=== PATIENT | female | born 1935 | race Caucasian/White ===

== ENCOUNTER 2021-04-26 14:26 | Inpatient (IN) | payer MEDICARE ==
[~2021-04-26] VITALS: Ht 152.4 cm; Wt 77.9 kg
[2021-04-26 14:44] LABS: BASOPHILS ABSOLUTE AUTO 0.03 K/mm3 (0.00-0.23); BASOPHILS PERCENT AUTO 0 % (0-2); EOSINOPHILS ABSOLUTE AUTO 0.04 K/mm3 (0.00-0.68); EOSINOPHILS PERCENT AUTO 0 % (0-6); Hematocrit 44.4 % (33.0-51.0); Hemoglobin 14.5 g/dL (11.5-16.0); IMMATURE GRAN PERCENT AUTO 1 % (0-1); LYMPHOCYTES ABSOLUTE AUTO 0.92 K/mm3 (0.84-5.20); LYMPHOCYTES PERCENT AUTO 6 % (21-46); MONOCYTES ABSOLUTE AUTO 0.97 K/mm3 (0.16-1.47); MONOCYTES PERCENT AUTO 6 % (4-13); Mean Corpuscular HGB 28.5 pg (26.0-34.0); Mean Corpuscular HGB Conc 32.7 g/dL (31.5-36.5); Mean Corpuscular Volume 87 fL (80-100); Mean Platelet Volume 9.4 fL (9.1-12.4); NEUTROPHILS ABSOLUTE AUTO 13.43 K/mm3 (1.96-9.15); NEUTROPHILS PERCENT AUTO 87 % (41-73); Platelet Count 328 K/mm3 (150-400); RDW Coefficient Variation 15.6 % (11.7-14.2); RDW Standard Deviation 49.9 fL (35.1-46.3); Red Blood Cell Count 5.08 M/mm3 (3.80-5.20); White Blood Cell Count 15.49 K/mm3 (4.00-11.30)
[2021-04-26] MEDS ORDERED: VITAMIN D5000 UNIT PO (14:57)
[2021-04-26] MEDS ORDERED: Vitamin B-121000 MCG PO (14:57)
[2021-04-26] MEDS ORDERED: CALCIUM CIT 311 EAC7 PO (14:57)
[2021-04-26] MEDS ORDERED: C COMPLEX1000 M1 PO (14:58)
[2021-04-26] MEDS ORDERED: MAGNESIUM OXID500 MG PO (14:58)
[2021-04-26 15:04] LABS: Alanine Aminotransfer (ALT/SGP 36 U/L (12-78); Albumin, Blood 2.7 g/dL (3.4-5.0); Albumin/Globulin Ratio 0.6 (0.8-1.8); Alk Phos 151 U/L (50-136); Anion Gap 10 mmol/L (6-16); Aspartate Aminotrans (AST/SGOT 34 U/L (12-37); Blood Urea Nitrogen 20 mg/dL (8-24); Bun/Creatinine Ratio 23.2 (12.0-20.0); CO2, Blood 20 mmol/L (21-32); Calcium, Blood 9.1 mg/dL (8.5-10.1); Chloride, Blood 99 mmol/L (98-108); Creatinine, Blood 0.86 mg/dL (0.40-1.00); Globulin, Blood 4.5 g/dL (2.2-4.0); Glomerular Filtration Rate >60 (60-); Glucose, Blood 233 mg/dL (70-99); Magnesium, Blood 2.3 mg/dL (1.6-2.4); Potassium, Blood 5.1 mmol/L (3.5-5.5); Sodium, Blood 129 mmol/L (136-145); Total Protein, Blood 7.2 g/dL (6.4-8.2); Troponin I <0.015 ng/mL (0.000-0.040)
[2021-04-26 15:16] LABS: International Normalized Ratio 1.21; Prothrombin Time Results 12.5 Sec (9.7-11.5)
[2021-04-26 16:01] LABS: Influenza A, PCR NEGATIVE (NEGATIVE); Influenza B, PCR NEGATIVE (NEGATIVE); Resp Syncytial Virus, PCR NEGATIVE (NEGATIVE); SARS-Cov-2 (COVID-19) PCR, MMC NEGATIVE (NEGATIVE)
[2021-04-26] MEDS ORDERED: ASPI81CH PO (18:47)
--- NOTE | 2021-04-27 05:34 | NUR ---
SHIFT SUMMARY PAITIENT ALERT AND ORIENTED. HAD NO COMPLAINTS OF PAIN. DYSPNEA UPON EXHERSION. NO ACUTE ISSUES NOTED OVERNIGHT. CALL LIGHT WITHIN REACH. REPORT GIVEN TO ONCOMING RN.
[2021-04-27 06:20] LABS: Anion Gap 8 mmol/L (6-16); Blood Urea Nitrogen 22 mg/dL (8-24); Bun/Creatinine Ratio 25.5 (12.0-20.0); CO2, Blood 24 mmol/L (21-32); Calcium, Blood 8.9 mg/dL (8.5-10.1); Chloride, Blood 99 mmol/L (98-108); Creatinine, Blood 0.86 mg/dL (0.40-1.00); Glomerular Filtration Rate >60 (60-); Glucose, Blood 138 mg/dL (70-99); Potassium, Blood 3.4 mmol/L (3.5-5.5); Sodium, Blood 131 mmol/L (136-145)
--- NOTE | 2021-04-27 11:44 | NUR ---
echocardiogram complete
--- NOTE | 2021-04-27 17:20 | NUR ---
PATIENT IS ALERT AND ORIENTED X4. PATIENT HAS HAD NO ACUTE EVENTS THIS SHIFT. PATIENT HAS HAD NO COMPLAINTS OF PAIN, SOB, NAUSEA, VOMITTING. CARDIOLOGY CONSULT WAS CALLED IN AND DR SAW PATIENT AND EXPLAINED PROCEDURES AND HAD CONSENT FORM SIGNED. CALL LIGHT IN REACH. VITAL SIGNS REVIEWED. WILL CONTINUE TO MONITOR UNTIL SHIFT CHANGE.
--- NOTE | 2021-04-27 21:20 | NUR ---
NOTIFIED PATIENT'S DAUGHTER OF TRANSFER TO PCU 6
--- NOTE | 2021-04-28 01:22 | NUR ---
A/OX4. INSPIRATORY CRACKLES UPPER AND MORE COARSE LOWER LOBES. MAINTAINING ABOVE 92% ON RA. AFIB AVG 95 PER TELE. FAINT PEDAL PULSES BL. 3+ PITTING EDEMA BOTH LOWER EXTREMITIES FROM THE HIPS DOWN, WITH RED/SCALING FROM JUST BELOW THE KNEE TO THE ANKLE. 1+ PITTING EDEMA BL UPPER EXTREMITIES. 2+ RADIAL PULSES BL. REDNESS ON BUTTOCKS. GETS UP WITH 1 ASSIST TO BSC, CALLS APPROPRIATELY. AMIODARONE NOW RUNNING AT 16.7ML/HR THE MAINTENANCE RATE. 1500ML FLUID RESTRICTION IN PLACE. PATIENT SLEPT MOST OF THE NIGHT.
[2021-04-28 04:01] LABS: BASOPHILS ABSOLUTE AUTO 0.04 K/mm3 (0.00-0.23); BASOPHILS PERCENT AUTO 0 % (0-2); EOSINOPHILS ABSOLUTE AUTO 0.12 K/mm3 (0.00-0.68); EOSINOPHILS PERCENT AUTO 1 % (0-6); Hematocrit 37.6 % (33.0-51.0); Hemoglobin 12.3 g/dL (11.5-16.0); IMMATURE GRAN ABSOLUTE AUTO 0.08 K/mm3 (0.00-0.10); IMMATURE GRAN PERCENT AUTO 1 % (0-1); LYMPHOCYTES ABSOLUTE AUTO 1.12 K/mm3 (0.84-5.20); LYMPHOCYTES PERCENT AUTO 8 % (21-46); MONOCYTES ABSOLUTE AUTO 0.95 K/mm3 (0.16-1.47); MONOCYTES PERCENT AUTO 7 % (4-13); Mean Corpuscular HGB 28.3 pg (26.0-34.0); Mean Corpuscular HGB Conc 32.7 g/dL (31.5-36.5); Mean Corpuscular Volume 86 fL (80-100); Mean Platelet Volume 9.6 fL (9.1-12.4); NEUTROPHILS ABSOLUTE AUTO 11.29 K/mm3 (1.96-9.15); NEUTROPHILS PERCENT AUTO 83 % (41-73); Platelet Count 293 K/mm3 (150-400); RDW Coefficient Variation 15.4 % (11.7-14.2); RDW Standard Deviation 47.9 fL (35.1-46.3); Red Blood Cell Count 4.35 M/mm3 (3.80-5.20)
[2021-04-28 04:31] LABS: Albumin, Blood 1.9 g/dL (3.4-5.0); Anion Gap 9 mmol/L (6-16); Blood Urea Nitrogen 23 mg/dL (8-24); Bun/Creatinine Ratio 29.9 (12.0-20.0); CO2, Blood 27 mmol/L (21-32); Calcium, Blood 8.1 mg/dL (8.5-10.1); Chloride, Blood 96 mmol/L (98-108); Creatinine, Blood 0.77 mg/dL (0.40-1.00); Glomerular Filtration Rate >60 (60-); Glucose, Blood 153 mg/dL (70-99); Magnesium, Blood 1.7 mg/dL (1.6-2.4); Phosphorus, Blood 3.1 mg/dL (2.5-4.9); Potassium, Blood 2.6 mmol/L (3.5-5.5); Sodium, Blood 132 mmol/L (136-145)
[2021-04-28 16:26] LABS: Albumin, Blood 2.3 g/dL (3.4-5.0); Anion Gap 8 mmol/L (6-16); Blood Urea Nitrogen 24 mg/dL (8-24); Bun/Creatinine Ratio 25.9 (12.0-20.0); CO2, Blood 31 mmol/L (21-32); Calcium, Blood 8.7 mg/dL (8.5-10.1); Chloride, Blood 96 mmol/L (98-108); Creatinine, Blood 0.93 mg/dL (0.40-1.00); Glomerular Filtration Rate 58 (60-); Glucose, Blood 191 mg/dL (70-99); Phosphorus, Blood 2.7 mg/dL (2.5-4.9); Potassium, Blood 3.2 mmol/L (3.5-5.5); Sodium, Blood 135 mmol/L (136-145)
--- NOTE | 2021-04-28 18:30 | NUR ---
A&O, PLEASANT WITH CARES. TELE: AFIB 80-100S. AMIODARONE GTT WAS D/C 1500,PO MEDS STARTED (METOPROLOL & AMIODARONE). IV LASIX GIVEN. UP TO BSC WITH MIN ASSIST. LIMITED MOBILITY ON LEFT KNEE. K AND MAG REPLACED IV TODAY. IV ABX CONTINUED. CBG TAKEN WITH EACH MEAL, SLIDING SCALE INSULIN GIVEN. 2 IV IN LEFT ARM BOTH FLUSHING WELL. 1500ML FLUID RESTRICTION MAINTAINED. GOOD APPETITE. PT WORKED WITH PT AND OT TODAY.
[2021-04-29 04:35] LABS: Anion Gap 7 mmol/L (6-16); Blood Urea Nitrogen 19 mg/dL (8-24); Bun/Creatinine Ratio 22.4 (12.0-20.0); CO2, Blood 33 mmol/L (21-32); Calcium, Blood 8.3 mg/dL (8.5-10.1); Chloride, Blood 97 mmol/L (98-108); Creatinine, Blood 0.85 mg/dL (0.40-1.00); Glomerular Filtration Rate >60 (60-); Glucose, Blood 120 mg/dL (70-99); Magnesium, Blood 1.7 mg/dL (1.6-2.4); Potassium, Blood 2.5 mmol/L (3.5-5.5); Sodium, Blood 137 mmol/L (136-145)
--- NOTE | 2021-04-29 07:40 | NUR ---
SHIFT SUMMARY PATIENT IS RESTING IN BED COMFORTABLY. BED IS IN LOW POSITION. CALL LIGHT IS IN REACH. VITALS WERE STABLE DURING THE SHFIT. NO ACUTE CHANGES DURING THE SHIFT. THE PATIENT HAS BEEN UP TO THE BEDSIDE COMMODE TO USE URINATE. THE PATIENT HAD A POTASSIM OF 2.5 DR BIRD WAS NOTIFED AND NEW ORDERS WERE PUT IN. THE PATIENT IS ON ROOM AIR AND SATURATING ABOVE 90%. SHE IS CURRENTLY AFIB ON THE MONITOR HEART RATE BETWEEN 70-80. WILL CONTINUE TO MONITOR. REPORT GIVEN TO DAY SHIFT RN.
[2021-04-29 16:17] LABS: Albumin, Blood 2.5 g/dL (3.4-5.0); Anion Gap 8 mmol/L (6-16); Blood Urea Nitrogen 19 mg/dL (8-24); Bun/Creatinine Ratio 18.8 (12.0-20.0); CO2, Blood 29 mmol/L (21-32); Calcium, Blood 8.4 mg/dL (8.5-10.1); Chloride, Blood 95 mmol/L (98-108); Creatinine, Blood 1.01 mg/dL (0.40-1.00); Glomerular Filtration Rate 52 (60-); Glucose, Blood 210 mg/dL (70-99); Phosphorus, Blood 4.4 mg/dL (2.5-4.9); Potassium, Blood 4.9 mmol/L (3.5-5.5); Sodium, Blood 132 mmol/L (136-145)
--- NOTE | 2021-04-29 18:28 | NUR ---
Pt had occupational and physical therapy today and tolerated both well. She stayed awake most of the day although she stated this AM that she was very tired after not getting much sleep last night. Blood sugar levels were elevated today (109 and 191) and she received insulin before her lunch and dinner meals. Heart rate has been jumping into 140-150's with exertion, but has also been randomly high while at rest. Pt showered this AM and is eating most of her meals. She requires assistance to the bedside comode and is good about asking for help. She had a small bowel movement today.
[2021-04-30 05:17] LABS: Albumin, Blood 2.1 g/dL (3.4-5.0); Anion Gap 6 mmol/L (6-16); Blood Urea Nitrogen 16 mg/dL (8-24); Bun/Creatinine Ratio 20.3 (12.0-20.0); CO2, Blood 33 mmol/L (21-32); Calcium, Blood 8.1 mg/dL (8.5-10.1); Chloride, Blood 96 mmol/L (98-108); Creatinine, Blood 0.79 mg/dL (0.40-1.00); Glomerular Filtration Rate >60 (60-); Glucose, Blood 108 mg/dL (70-99); Magnesium, Blood 1.9 mg/dL (1.6-2.4); Phosphorus, Blood 2.7 mg/dL (2.5-4.9); Potassium, Blood 3.1 mmol/L (3.5-5.5); Sodium, Blood 135 mmol/L (136-145)
--- NOTE | 2021-04-30 07:32 | NUR ---
SHIFT SUMMARY PATIENT IS RESTING IN BED COMFORTABLY. BED IS IN LOW POSITION. CALL LIGHT IS IN REACH. VITALS WERE STABLE DURING THE SHFIT. NO ACUTE CHANGES DURING THE SHIFT. THE PATIENT HAS BEEN UP TO THE BEDSIDE COMMODE TO USE URINATE. THE PATIENT IS ON ROOM AIR AND SATURATING ABOVE 90%. SHE IS CURRENTLY AFIB ON THE MONITOR HEART RATE BETWEEN 70-80. NO COMPLAINS OF PAIN. WILL CONTINUE TO MONITOR. REPORT GIVEN TO DAY SHIFT RN.
--- NOTE | 2021-04-30 18:24 | NUR ---
Assumed care of pt at 0700. She ate 100% of her breakfast and assisted in self personal care. Pt had some slight bleeding at the sites of Lovenox injections last night and this morning on L and R abdomen. Areas were cleaned and covered with bandaids. Insulin injection in left arm did not bleed. Pt worked with physical therapy today. Dr. Fowler spoke with pt today and a cardioversion is planned for tomorrow morning. Pt will be NPO after midnight tonight and will have a loading dose of Plavix at 2100. Hold Lovenox for this evening. Pt understands the procedure and does not express any anxiety or anticipation regarding it. She states that she understands the procedure and wants to have it done.
[2021-05-01 07:10] LABS: Albumin, Blood 2.1 g/dL (3.4-5.0); Anion Gap 7 mmol/L (6-16); Blood Urea Nitrogen 17 mg/dL (8-24); Bun/Creatinine Ratio 21.8 (12.0-20.0); CO2, Blood 33 mmol/L (21-32); Calcium, Blood 8.4 mg/dL (8.5-10.1); Chloride, Blood 98 mmol/L (98-108); Creatinine, Blood 0.78 mg/dL (0.40-1.00); Glomerular Filtration Rate >60 (60-); Glucose, Blood 127 mg/dL (70-99); Potassium, Blood 3.4 mmol/L (3.5-5.5); Sodium, Blood 138 mmol/L (136-145)
--- NOTE | 2021-05-01 12:15 | NUR ---
PT RETURNED FROM WILL CALL CLERK WITH RT RADIAL ACCESS, NO INTERVENTIONS, NO CARDIO VERSION. NO BLEEDING NOTED FROM RT RADIAL SITE, NO SWELLING, GOOD SENSATION TO RT FINGERS, PT ABLE TO MOVE FINGERS OF RT HAND. PT ALERT, VSS. DENIES CP OR SOB, EATING LUNCH.
--- NOTE | 2021-05-01 16:27 | NUR ---
Discussed limiting sodium intake and common sources of sodium. Reviewed salt alternatives and tips for choosing lower sodium foods when eating out. Discussed counting foods that are liquid at room temperature towards fluid restriction. Encouraged pt to monitor wt to watch for fluid accumulation. Good compliance expected.
--- NOTE | 2021-05-01 18:44 | NUR ---
PT TO [facility] DEEPTI AND ANGIO. RT RADIAL SITE IS FULLY RECOVERED, NO ACIVE BLEEDING, GOOD CAP REFILL, SKIN PWD AND INTACT ASIDE FROM PUNCTURE SITE, TEGADERM PLACED, ARM BOARD IN PLACE. PT THOROUGHLY EDUCATED ABOUT NOT USING RT ARM WHICH SHE EXPRESSED UNDERSTANDING OF. OTHERWSISE VSS. A/O X3. DENIES CP OR SOB. PT USED BEDPAN WHEN RETURNED FROM [facility]. [facility], PT IS AWARE. FLUID RESTRICTION REMAINS IN EFFECT
[2021-05-02 04:48] LABS: BASOPHILS ABSOLUTE AUTO 0.04 K/mm3 (0.00-0.23); BASOPHILS PERCENT AUTO 0 % (0-2); EOSINOPHILS ABSOLUTE AUTO 0.12 K/mm3 (0.00-0.68); EOSINOPHILS PERCENT AUTO 1 % (0-6); Hematocrit 36.8 % (33.0-51.0); IMMATURE GRAN ABSOLUTE AUTO 0.07 K/mm3 (0.00-0.10); IMMATURE GRAN PERCENT AUTO 1 % (0-1); LYMPHOCYTES ABSOLUTE AUTO 1.25 K/mm3 (0.84-5.20); LYMPHOCYTES PERCENT AUTO 12 % (21-46); MONOCYTES ABSOLUTE AUTO 0.74 K/mm3 (0.16-1.47); MONOCYTES PERCENT AUTO 7 % (4-13); Mean Corpuscular HGB 28.6 pg (26.0-34.0); Mean Corpuscular HGB Conc 32.6 g/dL (31.5-36.5); Mean Corpuscular Volume 88 fL (80-100); Mean Platelet Volume 9.7 fL (9.1-12.4); NEUTROPHILS ABSOLUTE AUTO 8.18 K/mm3 (1.96-9.15); NEUTROPHILS PERCENT AUTO 79 % (41-73); Platelet Count 319 K/mm3 (150-400); RDW Coefficient Variation 15.6 % (11.7-14.2); RDW Standard Deviation 49.5 fL (35.1-46.3)
[2021-05-02 05:08] LABS: Anion Gap 5 mmol/L (6-16); Blood Urea Nitrogen 16 mg/dL (8-24); Bun/Creatinine Ratio 20.4 (12.0-20.0); CO2, Blood 31 mmol/L (21-32); Calcium, Blood 8.4 mg/dL (8.5-10.1); Chloride, Blood 99 mmol/L (98-108); Creatinine, Blood 0.78 mg/dL (0.40-1.00); Glomerular Filtration Rate >60 (60-); Glucose, Blood 124 mg/dL (70-99); Magnesium, Blood 1.8 mg/dL (1.6-2.4); Phosphorus, Blood 2.9 mg/dL (2.5-4.9); Potassium, Blood 3.9 mmol/L (3.5-5.5); Sodium, Blood 135 mmol/L (136-145)
--- NOTE | 2021-05-02 18:25 | NUR ---
PT AWAITING RESULTS OF STRESS TEST FOR POSSIBLE D/C TODAY, RESULTS HAVE NOT BEEN REPORTED OUT OF THIS TIME. VSS, BP MEDS WERE HELD THIS AM FOR SOFT PRESSURES AND NPO STATUS FOR STRESS TEST. PT A/O X3, SBA TO BATHROOM. DENIES CP OR SOB.
--- NOTE | 2021-05-02 19:19 | NUR ---
Update: Per Cardiology pt is ok to discharge tonight if patient has a ride and feels ok about going home. Spoke with Patient. She states that she feels nervious about discharge and about her heart rate racing when she gets up. Informerd her this is fine and that it is ok for her to stay another night. Night RN in room to assess patient. Stable at this time.
[2021-05-03 04:14] LABS: Albumin, Blood 1.9 g/dL (3.4-5.0); Anion Gap 6 mmol/L (6-16); Blood Urea Nitrogen 17 mg/dL (8-24); Bun/Creatinine Ratio 21.5 (12.0-20.0); CO2, Blood 32 mmol/L (21-32); Calcium, Blood 8.4 mg/dL (8.5-10.1); Chloride, Blood 97 mmol/L (98-108); Creatinine, Blood 0.79 mg/dL (0.40-1.00); Glomerular Filtration Rate >60 (60-); Glucose, Blood 112 mg/dL (70-99); Magnesium, Blood 1.8 mg/dL (1.6-2.4); Phosphorus, Blood 2.6 mg/dL (2.5-4.9); Potassium, Blood 3.6 mmol/L (3.5-5.5); Sodium, Blood 135 mmol/L (136-145)
[2021-05-03 04:23] LABS: BASOPHILS ABSOLUTE AUTO 0.05 K/mm3 (0.00-0.23); BASOPHILS PERCENT AUTO 1 % (0-2); EOSINOPHILS ABSOLUTE AUTO 0.17 K/mm3 (0.00-0.68); EOSINOPHILS PERCENT AUTO 2 % (0-6); Hematocrit 36.6 % (33.0-51.0); Hemoglobin 11.7 g/dL (11.5-16.0); IMMATURE GRAN ABSOLUTE AUTO 0.06 K/mm3 (0.00-0.10); IMMATURE GRAN PERCENT AUTO 1 % (0-1); LYMPHOCYTES ABSOLUTE AUTO 1.25 K/mm3 (0.84-5.20); LYMPHOCYTES PERCENT AUTO 13 % (21-46); MONOCYTES ABSOLUTE AUTO 0.76 K/mm3 (0.16-1.47); MONOCYTES PERCENT AUTO 8 % (4-13); Mean Corpuscular HGB 27.9 pg (26.0-34.0); Mean Corpuscular Volume 87 fL (80-100); Mean Platelet Volume 9.5 fL (9.1-12.4); NEUTROPHILS PERCENT AUTO 77 % (41-73); Platelet Count 306 K/mm3 (150-400); RDW Coefficient Variation 15.5 % (11.7-14.2); RDW Standard Deviation 49.1 fL (35.1-46.3); Red Blood Cell Count 4.19 M/mm3 (3.80-5.20); White Blood Cell Count 9.79 K/mm3 (4.00-11.30)
--- NOTE | 2021-05-03 04:56 | NUR ---
SHIFT SUMMARY PT IS ALERT AND ORIENTED X 4. SHE IS PLEASANT AND COOPERATIVE WITH CARE. SPO2 IN 90'S VIA ROOM AIR. PATIENT STILL IN AFIB @90 PER TELE REPORT. PT DENIED SHORTNESS OF BREATH WELL CHEST PAIN/PRESSURE. RIGHT RADIAL ACCESS SITE IS COVERED WITH TRANSPARENT DRESSING, NO BLEEDING, REDDNESS, OR SWELLING NOTED. ARM BOARD IS IN PLACE ON RIGHT FOREARM. AT BEGINNING OF SHIFT PT DAUGHTER WAS AT BEDSIDE. NO OTHER ACUTE CHANGES NOTED. WILL CONTINUE TO MONITOR. CALL LIGHT IN REACH, NIGHTLIGHT IN ROOM ON.
[2021-05-03] MEDS ORDERED: Amiodarone HCl200 MG PO (12:03)
[2021-05-03] MEDS ORDERED: ELIQUIS5 M2 PO (12:03)
[2021-05-03] MEDS ORDERED: FURO20 PO ×2 (12:06→12:09)
[2021-05-03] MEDS ORDERED: Lisinopril2.5 MG PO (12:10)
[2021-05-03] MEDS ORDERED: TOPROL XL25 MG PO (12:12)
[2021-05-03] MEDS ORDERED: ANTIFUNGAL POWD71 GM TOP (12:14)
[2021-05-03] MEDS ORDERED: POTCHL20ER PO ×2 (12:15→12:16)
--- NOTE | 2021-05-03 14:14 | NUR ---
RECEIVED TELEMETRY CALL PATIENT WAS TACHY IN 130S. PATIENT HAD AMBULATED FROM CHAIR TO TOILET WITH AIDE'S ASSISTANCE. SHE IS WORKING ON HER DEEP BREATHING AND MOVING SLOWLY. COLOR AND BREATHING WNL, PATIENT DID NOT REPORT SOB OR PAIN.
--- NOTE | 2021-05-03 17:43 | NUR ---
DISCHARGE SUMMARY: THIS RN PROVIDED PATIENT WITH DISCHARGE EDUCATION RE: NEW MEDICATIONS, PATIENT REFERRAL TO DR. LUIS VILLANUEVA, FOLLOW-UP WITH DEFECT CUTTER, ANGINA, HEART [facility] DIET, ANGIOGRAM, AND RADIAL SITE CARE. MEDICATIONS WERE CALLED IN TO [facility]. PATIENT DID NOT HAVE ANY QUESTIONS AND VERBALLY STATED EVERYTHING HAD BEEN COVERED TO HER SATISFACTION. SHE THANKED EVERYONE FOR THEIR CARE. VS WERE STABLE UPON D/C AND PATIENT WAS IN GOOD SPIRITS. DAVID (DAUGHTER) PICKED UP PATIENT TO TRANSFER HOME AT 1735.
== END 2021-05-03 17:39 | disposition home or self-care (01) | DRG 286 ==
LOC: ER 14:26 → PCU 17:06 → MEDS 17:06 → PCU 04-27 20:45
PROVIDERS: Internal Medicine; Student in an Organized Health Care Education/Training Program; ADMIT Internal Medicine
PROC: 3E02340 Introduction of Influenza Vaccine into Muscle, Percutaneous Approach (ICD-10-PCS; 2021-04-26)
PROC: B2111ZZ Fluoroscopy of Multiple Coronary Arteries using Low Osmolar Contrast (ICD-10-PCS; principal; 2021-05-01)
PROC: B41D1ZZ Fluoroscopy of Aorta and Bilateral Lower Extremity Arteries using Low Osmolar Contrast (ICD-10-PCS; 2021-05-01)
DX: I48.91 Unspecified atrial fibrillation (principal); I50.23 Acute on chronic systolic (congestive) heart failure; E87.1 Hypo-osmolality and hyponatremia; L03.115 Cellulitis of right lower limb; R65.10 Systemic inflammatory response syndrome (SIRS) of non-infectious origin without acute organ dysfunction; Z66 Do not resuscitate; E87.6 Hypokalemia; E83.42 Hypomagnesemia; Z20.822 Contact with and (suspected) exposure to COVID-19; I51.3 Intracardiac thrombosis, not elsewhere classified; E83.39 Other disorders of phosphorus metabolism; D72.829 Elevated white blood cell count, unspecified; Z23 Encounter for immunization; I25.10 Atherosclerotic heart disease of native coronary artery without angina pectoris; E11.65 Type 2 diabetes mellitus with hyperglycemia; Z86.718 Personal history of other venous thrombosis and embolism; Z87.891 Personal history of nicotine dependence; Z98.890 Other specified postprocedural states
CPT/HCPCS: 0241U; 36415; 71045; 75630; 78452; 80048; 80053; 80069; 82947; 83036; 83735; 83880; 84484; 85025; 85347; 85610; 90686; 93005; 93010; 93017; 93306; 93312; 93325; 93454; 96374; 96375; 97110; 97116; 97161; 97165; 97530; 97535; 99152; 99153; 99285-25; A9270; A9500; C1769; C1894; G0008; G0278; J0282; J0690; J1644; J1650; J1940; J2250; J2785; J3010; J3475; J3480; J7030; J7050; J7060; Q9967

== ENCOUNTER 2021-05-12 19:12 | Inpatient (IN) | payer MEDICARE ==
[~2021-05-12] VITALS: Ht 152.4 cm; Wt 73.6 kg
[~2021-05-12 19:12] MED LIST changes: -Amiodarone HCl200 MG PO; -ELIQUIS5 M2 PO; -Lisinopril2.5 MG PO; -PACERONE100 M1; -TOPROL XL25 MG PO
[2021-05-12 19:54] LABS: BASOPHILS ABSOLUTE AUTO 0.03 K/mm3 (0.00-0.23); BASOPHILS PERCENT AUTO 0 % (0-2); EOSINOPHILS PERCENT AUTO 0 % (0-6); Hematocrit 38.7 % (33.0-51.0); Hemoglobin 12.5 g/dL (11.5-16.0); IMMATURE GRAN PERCENT AUTO 1 % (0-1); LYMPHOCYTES ABSOLUTE AUTO 0.76 K/mm3 (0.84-5.20); LYMPHOCYTES PERCENT AUTO 6 % (21-46); MONOCYTES ABSOLUTE AUTO 0.67 K/mm3 (0.16-1.47); MONOCYTES PERCENT AUTO 6 % (4-13); Mean Corpuscular HGB 27.6 pg (26.0-34.0); Mean Corpuscular HGB Conc 32.3 g/dL (31.5-36.5); Mean Corpuscular Volume 85 fL (80-100); Mean Platelet Volume 9.6 fL (9.1-12.4); NEUTROPHILS ABSOLUTE AUTO 10.42 K/mm3 (1.96-9.15); NEUTROPHILS PERCENT AUTO 87 % (41-73); Platelet Count 404 K/mm3 (150-400); RDW Coefficient Variation 15.5 % (11.7-14.2); RDW Standard Deviation 48.1 fL (35.1-46.3); Red Blood Cell Count 4.53 M/mm3 (3.80-5.20); White Blood Cell Count 11.98 K/mm3 (4.00-11.30)
[2021-05-12] MEDS ORDERED: PACERONE100 M1 (20:30)
[2021-05-12 20:58] LABS: Alanine Aminotransfer (ALT/SGP 18 U/L (12-78); Albumin, Blood 2.4 g/dL (3.4-5.0); Albumin/Globulin Ratio 0.5 (0.8-1.8); Alk Phos 127 U/L (50-136); Anion Gap 10 mmol/L (6-16); Aspartate Aminotrans (AST/SGOT 34 U/L (12-37); Bilirubin, Total 0.9 mg/dL (0.1-1.0); Blood Urea Nitrogen 18 mg/dL (8-24); Bun/Creatinine Ratio 22.1 (12.0-20.0); CO2, Blood 27 mmol/L (21-32); Calcium, Blood 8.8 mg/dL (8.5-10.1); Chloride, Blood 95 mmol/L (98-108); Creatinine, Blood 0.81 mg/dL (0.40-1.00); Globulin, Blood 4.6 g/dL (2.2-4.0); Glomerular Filtration Rate >60 (60-); Glucose, Blood 144 mg/dL (70-99); Potassium, Blood 3.2 mmol/L (3.5-5.5); Sodium, Blood 132 mmol/L (136-145)
[2021-05-12] MEDS ORDERED: ELIQUIS5 M2 PO (22:23)
[2021-05-12] MEDS ORDERED: Lisinopril2.5 MG PO (22:24)
[2021-05-12] MEDS ORDERED: FURO20 PO (22:24)
[2021-05-12] MEDS ORDERED: TOPROL XL25 MG PO (22:25)
[2021-05-12] MEDS ORDERED: Amiodarone HCl200 MG PO (22:25)
[2021-05-12] MEDS ORDERED: POTCHL20ER PO (22:26)
[2021-05-12 22:59] LABS: Influenza A, PCR NEGATIVE (NEGATIVE); Influenza B, PCR NEGATIVE (NEGATIVE); Resp Syncytial Virus, PCR NEGATIVE (NEGATIVE); SARS-Cov-2 (COVID-19) PCR, MMC NEGATIVE (NEGATIVE)
[2021-05-13 05:36] LABS: BASOPHILS ABSOLUTE AUTO 0.03 K/mm3 (0.00-0.23); BASOPHILS PERCENT AUTO 0 % (0-2); EOSINOPHILS ABSOLUTE AUTO 0.13 K/mm3 (0.00-0.68); EOSINOPHILS PERCENT AUTO 2 % (0-6); Hematocrit 34.6 % (33.0-51.0); Hemoglobin 11.1 g/dL (11.5-16.0); IMMATURE GRAN ABSOLUTE AUTO 0.09 K/mm3 (0.00-0.10); IMMATURE GRAN PERCENT AUTO 1 % (0-1); LYMPHOCYTES PERCENT AUTO 13 % (21-46); MONOCYTES ABSOLUTE AUTO 0.76 K/mm3 (0.16-1.47); MONOCYTES PERCENT AUTO 9 % (4-13); Mean Corpuscular HGB 27.8 pg (26.0-34.0); Mean Corpuscular HGB Conc 32.1 g/dL (31.5-36.5); Mean Corpuscular Volume 87 fL (80-100); Mean Platelet Volume 9.6 fL (9.1-12.4); NEUTROPHILS ABSOLUTE AUTO 6.75 K/mm3 (1.96-9.15); NEUTROPHILS PERCENT AUTO 75 % (41-73); Platelet Count 372 K/mm3 (150-400); RDW Coefficient Variation 15.6 % (11.7-14.2); RDW Standard Deviation 48.9 fL (35.1-46.3); Red Blood Cell Count 3.99 M/mm3 (3.80-5.20); White Blood Cell Count 8.96 K/mm3 (4.00-11.30)
[2021-05-13 05:51] LABS: Alanine Aminotransfer (ALT/SGP 13 U/L (12-78); Albumin, Blood 1.8 g/dL (3.4-5.0); Albumin/Globulin Ratio 0.5 (0.8-1.8); Alk Phos 98 U/L (50-136); Anion Gap 9 mmol/L (6-16); Aspartate Aminotrans (AST/SGOT 24 U/L (12-37); Bilirubin, Total 0.6 mg/dL (0.1-1.0); Blood Urea Nitrogen 16 mg/dL (8-24); Bun/Creatinine Ratio 22.4 (12.0-20.0); CO2, Blood 29 mmol/L (21-32); Calcium, Blood 8.2 mg/dL (8.5-10.1); Chloride, Blood 98 mmol/L (98-108); Creatinine, Blood 0.72 mg/dL (0.40-1.00); Globulin, Blood 3.9 g/dL (2.2-4.0); Glomerular Filtration Rate >60 (60-); Glucose, Blood 101 mg/dL (70-99); Potassium, Blood 3.4 mmol/L (3.5-5.5); Sodium, Blood 136 mmol/L (136-145); Total Protein, Blood 5.7 g/dL (6.4-8.2)
--- NOTE | 2021-05-13 10:04 | NUR ---
ARRIVAL TO UNIT PT ARRIVED TO UNIT AT 0850, TRANSFERED TO [facility] WITH SLIDE SHEET. AA0X4. PT DENIES NAUSEA, CP, OR SHORTNESS OF BREATH. SHE IS ON ROOM AIR. LINENS CHANGED ON ARRIVAL OF INC URINE. PT AWARE OF URGE TO VOID AND WILL CALL APPROPRIATLY. CALL LIGHT IN REACH. PICTURES IN CHART OF WOUNDS. LEFT SURGICAL SITE HAS TWO SMALL WHITE RAISED BUMPS ALONG INCISION LINE. LEFT LATERAL SIDE OF CALF IS RED AND INFLAMMED, PAINFUL TO TOUCH. DEEP PURPLE, UNBLANCHABLE PRESSURE ULCER TO COCCYX. MEPILEX APPLIED AND PATIENT WILL BE Q2 TURNS, PT HELPS WITH REPOSITIONING. PT AWARE OF NPO STATUS AND PLAN IS FOR SURGERY TODAY TO CLEAN OUT INFECTED AREA.
--- NOTE | 2021-05-13 14:24 | NUR ---
surgery coming to get patient for procedure. pt voided prior to leaving, saline locked. pt reports looking forward to surgery.
--- NOTE | 2021-05-13 14:51 | NUR ---
History, Chart, Medications and Allergies reviewed before start of procedure. Patient confirms NPO status and agrees with scheduled surgery. Pre-Op teaching done. Pt verbalizes understanding. Lungs clear T/O to Auscultation.
--- NOTE | 2021-05-13 15:41 | NUR ---
05/13/21 1541 Emma Witt NO PRE OP ANTIBIOTICS ORDERED PER PATIENT IS ON SCHEDULED VANCO.
--- NOTE | 2021-05-13 16:29 | NUR ---
WHILE RECIEVING REPORT FROM PACU WAS TOLD OF PATIENTS AFIB WITH RVR AND BP IN THE 80'S, SPOKE WITH HOSPITALIST WHO ASKED FOR TRANSFER TO PCU AND 500ML BOLUS. NOTIFIED NURSING COTTON BALL BAGGER AND PACU, PLAN IS TO TRANSFER TO PCU.
--- NOTE | 2021-05-13 16:35 | NUR ---
1624 REPORT CALLED TO SURGICAL FLOOR, ALE LAWRENCE RN. WHEN REPORT WAS GIVEN AND UPDATED WITH NEW CHANGE OF HR RYJADEM, A-FIB W/RVR, HE WANTED TO CALL HOSPITALIST TO SEE IF WANTED TO CHANGE STATUS. C/O LEFT THIGH PAIN 09/04, FENTANYL 25MCG IVP GIVEN PER ORDERS WITH GOOD RESULTS. 1630 RECEIVED CALLED BACK FROM ALE LAWRENCE RN AND PER DR GARAY TO CHANGE STATUS TO PCU AND GIVEN 500CC IVF BOLUS; STARTED BOLUS. 1635 REPORTED OFF TO CLARISA PAUL RN IN PACU TO TAKE OVER CARE. PATIENT RESTING COMFORTABLE AT THIS TIME.
--- NOTE | 2021-05-13 16:47 | NUR ---
PT REPORT FROM ANGELIKA RENEE AND HARRY VANEGAS RN. WAITING FOR BED IN PCU FOR CHANGE IN RHYTHYM. PT RECEIVING BOLUS OF 500CC LR. PT AWAKE ALERT AND ORIENTED.
--- NOTE | 2021-05-13 17:42 | NUR ---
SPOKE TO NURSING NETWORK ENGINEER ADMINISTRATOR, WAITING FOR PCU BED TO BE CLEANED.
--- NOTE | 2021-05-13 18:36 | NUR ---
report given to pcu nurse. belongings sent to pcu with patient. notified patients daughter per patient request.
--- NOTE | 2021-05-13 18:52 | NUR ---
PT TRANSFERRED FROM SURGICAL FLOOR REPORT RECEIVED FROM ALE KELLEY, PT WENT TO AFIB AFTER THE PROCEDURE HRR AFIB AT 120'S AT THIS TIME, SOFT BP'S 90-100'S SYSTOLIC, SATS ABOVE 95% ON RA, AFEBRILE. PT WOUND VAC ON LEFT THIGH RUNNING AND INTACT, PT TO UNDERGO PROCEDURE AGAIN TOMORROW TO TAKE HARDWARES OUT. PT IN BED RESTING AT THIS TIME, WILL MONITOR
[2021-05-13 22:41] LABS: Vancomycin, Trough 15.8 ug/mL (5.0-10.0)
[2021-05-14 03:55] LABS: BASOPHILS ABSOLUTE AUTO 0.03 K/mm3 (0.00-0.23); BASOPHILS PERCENT AUTO 0 % (0-2); EOSINOPHILS PERCENT AUTO 0 % (0-6); Hematocrit 32.3 % (33.0-51.0); Hemoglobin 10.3 g/dL (11.5-16.0); IMMATURE GRAN ABSOLUTE AUTO 0.15 K/mm3 (0.00-0.10); IMMATURE GRAN PERCENT AUTO 1 % (0-1); LYMPHOCYTES ABSOLUTE AUTO 0.44 K/mm3 (0.84-5.20); LYMPHOCYTES PERCENT AUTO 4 % (21-46); MONOCYTES ABSOLUTE AUTO 0.27 K/mm3 (0.16-1.47); MONOCYTES PERCENT AUTO 2 % (4-13); Mean Corpuscular HGB 27.9 pg (26.0-34.0); Mean Corpuscular HGB Conc 31.9 g/dL (31.5-36.5); Mean Corpuscular Volume 88 fL (80-100); Mean Platelet Volume 9.6 fL (9.1-12.4); NEUTROPHILS ABSOLUTE AUTO 10.27 K/mm3 (1.96-9.15); NEUTROPHILS PERCENT AUTO 92 % (41-73); Platelet Count 390 K/mm3 (150-400); RDW Coefficient Variation 15.8 % (11.7-14.2); RDW Standard Deviation 50.7 fL (35.1-46.3); Red Blood Cell Count 3.69 M/mm3 (3.80-5.20); White Blood Cell Count 11.16 K/mm3 (4.00-11.30)
[2021-05-14 04:23] LABS: Alanine Aminotransfer (ALT/SGP 21 U/L (12-78); Albumin, Blood 1.7 g/dL (3.4-5.0); Albumin/Globulin Ratio 0.5 (0.8-1.8); Alk Phos 92 U/L (50-136); Anion Gap 7 mmol/L (6-16); Aspartate Aminotrans (AST/SGOT 40 U/L (12-37); Bilirubin, Total 0.5 mg/dL (0.1-1.0); Blood Urea Nitrogen 17 mg/dL (8-24); Bun/Creatinine Ratio 23.8 (12.0-20.0); CO2, Blood 26 mmol/L (21-32); Calcium, Blood 8.3 mg/dL (8.5-10.1); Chloride, Blood 101 mmol/L (98-108); Creatinine, Blood 0.72 mg/dL (0.40-1.00); Globulin, Blood 3.7 g/dL (2.2-4.0); Glomerular Filtration Rate >60 (60-); Glucose, Blood 228 mg/dL (70-99); Potassium, Blood 4.1 mmol/L (3.5-5.5); Sodium, Blood 134 mmol/L (136-145); Total Protein, Blood 5.4 g/dL (6.4-8.2)
--- NOTE | 2021-05-14 16:40 | NUR ---
PT SUMMARY: PT TO MOVE TO ROOM 208. NO OTHER ISSUES ENCOUNTERED FOR THE SMHIFT, PT REMAINED AFIB RATE CONTROLLED 70-100'S, BP SYSTOLIC 100-110'S, SATS ABOVE 95% ON RA, AFEBRILE. WOUND VAC ON LEFT THIGH REMAINED INTACT DRAINING SANGUINOUS CANISTER CHANGE DHAD 200MLS OUTPUT. PT DENIES ANY PAIN FOR THE SHIFT, HAS TENDERNESS ON THE SITE WHEN MOVED. USES BEDPAN FOR TOILETING ABLE TO HELP SELF MOVING AND REPOSITONING IN BED. NO OTHER ISSUES REPORTED FOR THE SHIFT, WILL REPORT TO SURGICAL FLOOR NURSE
--- NOTE | 2021-05-14 18:30 | NUR ---
LATE ENTRY ARRIVED FROM PCU VIA BED, AWAKE, A&OX4 BUT FORGETFUL, ORIENTED TO ROOM AND CALL SYSTEM, DENIES ANY PAIN OR ANY DISCOMFORT, WOUND VAC INTACT W/ SS DRAINAGE NOTED IN TUBING, CBG NOTED TO BE 214 BEFORE DINNER, NO SLIDING SCALE ORDERED, DR. FARRIS NOTIFIED, LOW HUMALOG SS ORDERED, REPORT TO NOC RN.
--- NOTE | 2021-05-15 06:14 | NUR ---
AAOX4, NO ACUTE DISTRESS AT THIS TIME. PATIENT HAD 7/10 PAIN IN HER LEFT LEG AND WAS MEDCATED PER EMAR. MARIAHETN SLEPT AFTER PAIN MEDICATION PT IS NPO AND READY FOR PROCEDURE THIS AM. CALL LIGHT WITHIN REACH. BED AT LOWEST POSTION
--- NOTE | 2021-05-15 13:39 | NUR ---
to day surgery via cart
--- NOTE | 2021-05-15 13:59 | NUR ---
PATIENT WAS BROUGHT TO DAY SURGERY FOR HER POCEDURE.
--- NOTE | 2021-05-15 15:26 | NUR ---
05/15/21 1526 Tha Cade NO SPECIMENS PER
--- NOTE | 2021-05-15 16:53 | NUR ---
1625 RETURNED TO ROOM, PT WITH AUDIBLE WHEEZES AND BIBASILAR CRACKLES. OXYGEN AT 2 LITERS AND BIOX 97%. PT REPORTS FEELS SLIGHTLY SOB. WOUND VAC IN PLACE TO LEFT LEG MAINTAINING SUCTION, DRAINING SS DRAINAGE. DRESSING REINFORCED. SPOKE WITH DR FARRIS REGARDING PTS RESPIRATORY STATUS, AND NEW ORDERS RECEIVED
--- NOTE | 2021-05-15 17:52 | NUR ---
[address] FARRIS REGARDING PATIENTS VITAL SIGNS, NEW ORDERS RECEIVED
--- NOTE | 2021-05-15 18:15 | NUR ---
PT REPORTS PAIN TO LEFT LEG IS CURRWNTLY 6/10 WHICH SHE STATES IS ACCEPTABLE TO HER SINCE SHE KNOWS IT WILL BE PAINFUL AFTER SURGERY. WOUND VAC MAINTAINING PRESSURE AND DRAINING SANGUINOUS DRAINAGE. IV LASIX GIVEN WHEN SBP GREATER THAN 110. PT WITH BIOX 100 PERCENT ON 2 LITERS. NO AUDIBLE WHEEZES HEARD AND PT DENIES SOB WITH HOB ELEVATED AT 30 DEGREES. PT REPORTS SLIGHT SOB WHEN LYING FLAT
[2021-05-16 05:30] LABS: BASOPHILS ABSOLUTE AUTO 0.08 K/mm3 (0.00-0.23); BASOPHILS PERCENT AUTO 1 % (0-2); EOSINOPHILS ABSOLUTE AUTO 0.18 K/mm3 (0.00-0.68); EOSINOPHILS PERCENT AUTO 1 % (0-6); Hematocrit 28.3 % (33.0-51.0); IMMATURE GRAN ABSOLUTE AUTO 0.41 K/mm3 (0.00-0.10); IMMATURE GRAN PERCENT AUTO 3 % (0-1); LYMPHOCYTES ABSOLUTE AUTO 1.05 K/mm3 (0.84-5.20); LYMPHOCYTES PERCENT AUTO 7 % (21-46); MONOCYTES ABSOLUTE AUTO 1.18 K/mm3 (0.16-1.47); MONOCYTES PERCENT AUTO 7 % (4-13); Mean Corpuscular HGB 28.1 pg (26.0-34.0); Mean Corpuscular HGB Conc 31.8 g/dL (31.5-36.5); Mean Corpuscular Volume 88 fL (80-100); Mean Platelet Volume 9.8 fL (9.1-12.4); NEUTROPHILS PERCENT AUTO 82 % (41-73); Platelet Count 367 K/mm3 (150-400); RDW Coefficient Variation 15.9 % (11.7-14.2)
[2021-05-16 06:05] LABS: Anion Gap 7 mmol/L (6-16); Blood Urea Nitrogen 19 mg/dL (8-24); CO2, Blood 29 mmol/L (21-32); Calcium, Blood 8.5 mg/dL (8.5-10.1); Chloride, Blood 104 mmol/L (98-108); Creatinine, Blood 0.73 mg/dL (0.40-1.00); Glomerular Filtration Rate >60 (60-); Glucose, Blood 137 mg/dL (70-99); Potassium, Blood 3.8 mmol/L (3.5-5.5); Sodium, Blood 140 mmol/L (136-145)
--- NOTE | 2021-05-16 16:15 | NUR ---
JEAN CARLOS WRAP AND KNEE IMMOBOLIZER PLACED TO LT LEG PER ORDERS OF DR RAPHAEL, DRAIN IS INPLACE WITH GOOD OUTPUT AND CONTINUES TO HAVE GOOD SUCTION AT THE TIME OF THIS NOTE. PT REPORTS MINIMAL PAIN TO LT LEG HAS NOT REQUIRED PAIN MEDICATIONS TO CONTROL PAIN. PT A/O X3. PT WITH ONE UNMEASURED VOID TODAY. LINEN CHANGE PERFORMED. VSS. NADN
--- NOTE | 2021-05-17 18:14 | NUR ---
SHIFT SUMMARY PATIENT ALERT AND SOMETIMES FORGETFUL THROUGHOUT SHIFT. 2 PERSON MOD ASSIST TO PIVOT TRANSFER WITH FWW AND GAIT BELT TO CHAIR AND COMMODE. WOUND VAC AND DRESSING CHANGED THIS SHIFT TO LEFT THIGH. TOLERATING ADA DIET AND FLUIDS. ROUTINE ABX. PAIN CONTROLLED WITH PO PAIN MEDS. USES COMMODE AND BEDPAN. PLAN TO CONTINUE WORKING WITH PHYSICAL THERAPY, CHANGE WOUND VAC ON WEDNESDAY, POSSIBLE CLOSURE OF WOUND BY ORTHO, AND MOVE TOWARD SNF DISCHARGE. WILL REPORT TO [facility] CHAIR RN.
[2021-05-18 08:41] LABS: BASOPHILS ABSOLUTE AUTO 0.06 K/mm3 (0.00-0.23); BASOPHILS PERCENT AUTO 0 % (0-2); EOSINOPHILS PERCENT AUTO 2 % (0-6); Hematocrit 26.5 % (33.0-51.0); Hemoglobin 8.5 g/dL (11.5-16.0); IMMATURE GRAN ABSOLUTE AUTO 0.39 K/mm3 (0.00-0.10); IMMATURE GRAN PERCENT AUTO 2 % (0-1); LYMPHOCYTES ABSOLUTE AUTO 1.27 K/mm3 (0.84-5.20); LYMPHOCYTES PERCENT AUTO 8 % (21-46); MONOCYTES ABSOLUTE AUTO 0.85 K/mm3 (0.16-1.47); MONOCYTES PERCENT AUTO 5 % (4-13); Mean Corpuscular HGB 28.3 pg (26.0-34.0); Mean Corpuscular HGB Conc 32.1 g/dL (31.5-36.5); Mean Corpuscular Volume 88 fL (80-100); NEUTROPHILS ABSOLUTE AUTO 13.11 K/mm3 (1.96-9.15); NEUTROPHILS PERCENT AUTO 82 % (41-73); Platelet Count 445 K/mm3 (150-400); RDW Coefficient Variation 16.5 % (11.7-14.2); RDW Standard Deviation 53.4 fL (35.1-46.3); White Blood Cell Count 15.98 K/mm3 (4.00-11.30)
[2021-05-18 09:01] LABS: Anion Gap 6 mmol/L (6-16); Blood Urea Nitrogen 14 mg/dL (8-24); Bun/Creatinine Ratio 19.8 (12.0-20.0); CO2, Blood 29 mmol/L (21-32); Calcium, Blood 8.6 mg/dL (8.5-10.1); Chloride, Blood 104 mmol/L (98-108); Creatinine, Blood 0.71 mg/dL (0.40-1.00); Glomerular Filtration Rate >60 (60-); Glucose, Blood 136 mg/dL (70-99); Sodium, Blood 139 mmol/L (136-145)
--- NOTE | 2021-05-18 18:05 | NUR ---
PATIENT CURRENTLY SITTING UP IN CHAIR REFUSING TO GO BACK TO BED AT THIS TIME. NO SIGNS OR SYMPTOMS ACUTE DISTRESS NOTED. PATIENT HAS HAD INTERMITANT CONFUSION TODAY. PATIENT SAID SHE WANTED TO DESTROY HER NEW CELL PHONE. SHE WAS HITTING IT AGAINST THE BED, SHE PUT IT IN HER CUP OF WATER-WHEN SHE FOUND OUT IT WAS WATERPROOF SHE SAID WELL I DIDNT KNOWN THAT. THIS NURSE CALLED HER DAUGHTER TO TELL HER OF THE PHONE ISSUE, DAUGHTER ASKED FOR THIS NURSE TO PLACE PHONE OUT OF REACH OF PATIENT AND SHE WOULD GET IN WHEN SHE CAME TO VISIT TO TAKE HOME. THIS NURSE WENT TO GET HER PHONE SHE THREW IN AT THIS NURSE AND IT HIT THE FLOOR. THE PHONE SEEMS TO STILL BE FUNCTIONING. THIS NURSE PLACED PHONE ON THE NIGHTSTAND. WHEN DAUGHTER CAME IN SHE DID TAKE IN HOME WITH HER. NOTIFIED DR FARRIS OF PATIENTS CONFUSION, SHE ORDERS A UA WITH CX IF INDICATED. STILL WAITING TO COLLECT URINE. WILL MONITOR.
[2021-05-19 06:55] LABS: Source, Urine Clean Catch
[2021-05-19 06:58] LABS: Appearance, Urine Clear (Clear); Bilirubin, Urine Neg (Neg); Blood, Urine 2+ (Neg); Color, Urine Yellow (P-Yellow); Glucose Qualitative, Urine Neg (Neg); Ketones, Urine Neg (Neg); Leukocyte Esterase, Urine 1+ (Neg); Nitrite, Urine Neg (Neg); Protein, Urine 3+ (Neg); Specific Gravity, Urine 1.025 (1.003-1.022); Urobilinogen, Urine NORM (Normal)
[2021-05-19 07:14] LABS: Bacteria Few /hpf; Squamous Epithelial Cells Mod /hpf (Few)
[2021-05-19 07:15] LABS: Hyaline Casts 0-2 /lpf (0-2)
[2021-05-19 07:31] LABS: BASOPHILS ABSOLUTE AUTO 0.07 K/mm3 (0.00-0.23); BASOPHILS PERCENT AUTO 1 % (0-2); EOSINOPHILS ABSOLUTE AUTO 0.48 K/mm3 (0.00-0.68); EOSINOPHILS PERCENT AUTO 3 % (0-6); Hematocrit 28.8 % (33.0-51.0); Hemoglobin 8.9 g/dL (11.5-16.0); IMMATURE GRAN ABSOLUTE AUTO 0.25 K/mm3 (0.00-0.10); IMMATURE GRAN PERCENT AUTO 2 % (0-1); LYMPHOCYTES ABSOLUTE AUTO 1.18 K/mm3 (0.84-5.20); LYMPHOCYTES PERCENT AUTO 8 % (21-46); MONOCYTES ABSOLUTE AUTO 0.87 K/mm3 (0.16-1.47); MONOCYTES PERCENT AUTO 6 % (4-13); Mean Corpuscular HGB 28.2 pg (26.0-34.0); Mean Corpuscular HGB Conc 30.9 g/dL (31.5-36.5); Mean Corpuscular Volume 91 fL (80-100); Mean Platelet Volume 9.9 fL (9.1-12.4); NEUTROPHILS ABSOLUTE AUTO 12.44 K/mm3 (1.96-9.15); NEUTROPHILS PERCENT AUTO 81 % (41-73); NRBC ABSOLUTE 0.02 K/mm3 (0.00-0.02); NRBC Auto 0.1 /100 WBC (0.0-0.2); Platelet Count 379 K/mm3 (150-400); RDW Coefficient Variation 16.5 % (11.7-14.2); RDW Standard Deviation 55.2 fL (35.1-46.3); Red Blood Cell Count 3.16 M/mm3 (3.80-5.20); White Blood Cell Count 15.29 K/mm3 (4.00-11.30)
[2021-05-19 07:45] LABS: Anion Gap 7 mmol/L (6-16); Blood Urea Nitrogen 14 mg/dL (8-24); Bun/Creatinine Ratio 20.4 (12.0-20.0); CO2, Blood 28 mmol/L (21-32); Chloride, Blood 108 mmol/L (98-108); Creatinine, Blood 0.69 mg/dL (0.40-1.00); Glomerular Filtration Rate >60 (60-); Glucose, Blood 128 mg/dL (70-99); Potassium, Blood 4.1 mmol/L (3.5-5.5); Sodium, Blood 143 mmol/L (136-145)
--- NOTE | 2021-05-19 18:00 | NUR ---
PATIENT CURRENTLY SITTING UP IN BED EATING HER MEAL. NO SIGNS OR SYMPTOMS ACUTE DISTRESS AT THIS TIME. IT SEEMS WHEN HER DAUGHTER IS HERE SHE IS ORIENTED, BUT WHEN SHE IS NOT HERE SHE HAS INCREASED CONFUSION. DR SEGOVIA REMOVED WOUND VAC AND PLACED SUTURES TO LEFT KNEE AREA, PATIENT TOLERATED WELL, DR SEGOVIA DRESSED WOUND. PATIENT WAS VERY DROWSY THIS AM RELATED TO PRN NORCO RECIEVED LAST SHIFT, THE MED WAS DISCONTINUED PER MD. PATIENT DID FINALLY WAKE UP AROUND 1200 BUT WITH CONFUSION AND TRYING TO GET OUT OF BED YELLING LOUDLY AT MOTOR AND GENERATOR ASSEMBLER. PATIENT STATED WE STOLE HER MEDICARE CARE AND SHE WANTED OUT OF HERE. WE WERE ABLE TO REDIRECT HER FAIRLY EASILY BUT THE PATIENT BECAME TEARFUL. CONSOLED. PT/OT WORKED WITH PATIENT TODAY, PATIENT DID WELL WITH BOTH. WILL MONITOR.
--- NOTE | 2021-05-20 04:04 | NUR ---
SHIFT SUMMARY PT A&O X4, THOUGH DID NEED EASY REDIRECTING ONCE DURING THE NIGHT. IN PLEASENT MOOD T/O SHIFT. PT RESTED IN BED T/O SHIFT. TOLERATING PO INTAKE WELL, DENIES N/V. HYPOTENSIVE DURING NIGHT, THOUGH PT WAS ASYMPTOMATIC AND DENIED DIZZINESS/LIGHTHEADNESS. CALL LIGHT W/IN REACH AND ABLE TO USE APPROPRIATELY.
[2021-05-20 04:22] LABS: BASOPHILS ABSOLUTE AUTO 0.04 K/mm3 (0.00-0.23); BASOPHILS PERCENT AUTO 0 % (0-2); EOSINOPHILS PERCENT AUTO 2 % (0-6); Hematocrit 25.8 % (33.0-51.0); Hemoglobin 8.1 g/dL (11.5-16.0); IMMATURE GRAN ABSOLUTE AUTO 0.16 K/mm3 (0.00-0.10); IMMATURE GRAN PERCENT AUTO 1 % (0-1); LYMPHOCYTES ABSOLUTE AUTO 1.11 K/mm3 (0.84-5.20); LYMPHOCYTES PERCENT AUTO 10 % (21-46); MONOCYTES ABSOLUTE AUTO 0.72 K/mm3 (0.16-1.47); MONOCYTES PERCENT AUTO 6 % (4-13); Mean Corpuscular HGB 27.7 pg (26.0-34.0); Mean Corpuscular HGB Conc 31.4 g/dL (31.5-36.5); Mean Corpuscular Volume 88 fL (80-100); Mean Platelet Volume 9.3 fL (9.1-12.4); NEUTROPHILS ABSOLUTE AUTO 9.14 K/mm3 (1.96-9.15); NEUTROPHILS PERCENT AUTO 80 % (41-73); Platelet Count 370 K/mm3 (150-400); RDW Coefficient Variation 16.4 % (11.7-14.2); RDW Standard Deviation 52.9 fL (35.1-46.3); Red Blood Cell Count 2.92 M/mm3 (3.80-5.20); White Blood Cell Count 11.37 K/mm3 (4.00-11.30)
[2021-05-20 04:50] LABS: Anion Gap 8 mmol/L (6-16); Blood Urea Nitrogen 14 mg/dL (8-24); Bun/Creatinine Ratio 20.2 (12.0-20.0); CO2, Blood 30 mmol/L (21-32); Calcium, Blood 8.4 mg/dL (8.5-10.1); Chloride, Blood 105 mmol/L (98-108); Creatinine, Blood 0.69 mg/dL (0.40-1.00); Glomerular Filtration Rate >60 (60-); Glucose, Blood 113 mg/dL (70-99); Potassium, Blood 3.8 mmol/L (3.5-5.5); Sodium, Blood 143 mmol/L (136-145)
[2021-05-20 13:49] LABS: Influenza A, PCR NEGATIVE (NEGATIVE); Influenza B, PCR NEGATIVE (NEGATIVE); Resp Syncytial Virus, PCR NEGATIVE (NEGATIVE); SARS-Cov-2 (COVID-19) PCR, MMC NEGATIVE (NEGATIVE)
--- NOTE | 2021-05-20 13:52 | NUR ---
DISCHARGE: REPORT CALLED TO NALLELY MI AT [facility] AT THIS TIME. PICC LINE TO JACK MALDONADOSHES WELL, WILL STAY FOR SNF IV ABX AT SNF. OTHER IV'S REMOVED AT THIS TIME. CALL LIGHT AND WATER IN EASY REACH. NOTIFIED PATIENTS DAUGHTER OF CASING TRIMMER TIME SHE ASKED TO BE CALLED WHEN A CASING TRIMMER TIME WAS SET.
--- NOTE | 2021-05-20 15:28 | NUR ---
PATIENT DISCHARGED VIA WHEELCHAIR TRANSPORT.
== END 2021-05-20 15:26 | DRG 498 ==
LOC: ER 19:12 → SURS 23:32 → ERHOLD 23:32 → PCU 23:32 → SURS 05-13 09:00 → PCU 05-13 17:43 → SURS 05-14 17:18
PROVIDERS: Internal Medicine; Orthopaedic Surgery; Physician Assistant; Student in an Organized Health Care Education/Training Program; ADMIT Internal Medicine
PROC: 0QP704Z Removal of Internal Fixation Device from Left Upper Femur, Open Approach (ICD-10-PCS; principal; 2021-05-15 15:30)
DX: T84.195A Other mechanical complication of internal fixation device of left femur, initial encounter (principal); G93.41 Metabolic encephalopathy; A41.89 Other specified sepsis; L03.116 Cellulitis of left lower limb; E87.1 Hypo-osmolality and hyponatremia; M86.8X8 Other osteomyelitis, other site; I48.20 Chronic atrial fibrillation, unspecified; I50.22 Chronic systolic (congestive) heart failure; L02.416 Cutaneous abscess of left lower limb; A28.0 Pasteurellosis; Z20.822 Contact with and (suspected) exposure to COVID-19; I51.3 Intracardiac thrombosis, not elsewhere classified; I11.0 Hypertensive heart disease with heart failure; Z66 Do not resuscitate; E11.51 Type 2 diabetes mellitus with diabetic peripheral angiopathy without gangrene; E87.6 Hypokalemia; Z86.718 Personal history of other venous thrombosis and embolism; Z98.890 Other specified postprocedural states; Z79.01 Long term (current) use of anticoagulants; Y83.1 Surgical operation with implant of artificial internal device as the cause of abnormal reaction of the patient, or of later complication, without mention of misadventure at the time of the procedure
CPT/HCPCS: 0241U; 36415; 71045; 72170; 73552; 73590; 73701; 80048; 80053; 80202; 81001; 82947; 83605; 83880; 84484; 85014; 85018; 85025; 85651; 86140; 87040; 87070; 87075; 87086; 87205; 94760; 94762; 96365; 96366; 96367; 97110; 97116; 97162; 97166; 97530; 97535; 99285-25; A9270; C1751; J0295; J0692; J1100; J1940; J2370; J2405; J2704; J3010; J3370; J7030; J7050; J7120; Q9967

== ENCOUNTER → 2021-05-12 | Outpatient (CLI) | payer MEDICARE ==
[~2021-05-12] MED LIST: ANTIFUNGAL POWD71 GM TOP; ASPI81CH PO; Amiodarone HCl200 MG PO; C COMPLEX1000 M1 PO; CALCIUM CIT 311 EAC7 PO; ELIQUIS5 M2 PO; FURO20 PO; Lisinopril2.5 MG PO; MAGNESIUM OXID500 MG PO; PACERONE100 M1; POTCHL20ER PO; TOPROL XL25 MG PO; VITAMIN D5000 UNIT PO; Vitamin B-121000 MCG PO
== END | disposition home or self-care (01) ==
LOC: LAB SHORT 18:39
DX: L03.116 Cellulitis of left lower limb (principal)
CPT/HCPCS: 87070; 87075; 87077; 87205

== ENCOUNTER 2021-11-05 02:19 | Day surgery (SDC) | payer MEDICARE, OTHER ==
[~2021-11-05 02:19] MED LIST changes: +Amiodarone HCl200 MG PO; +ELIQUIS5 M2 PO; +Lisinopril2.5 MG PO; +PACERONE100 M1; +TOPROL XL25 MG PO
== END 2021-11-05 23:08 | disposition home or self-care (01) ==
LOC: WOUND 02:19
DX: L89.623 Pressure ulcer of left heel, stage 3 (principal); E11.621 Type 2 diabetes mellitus with foot ulcer; E11.51 Type 2 diabetes mellitus with diabetic peripheral angiopathy without gangrene; I48.91 Unspecified atrial fibrillation; I25.10 Atherosclerotic heart disease of native coronary artery without angina pectoris; I50.9 Heart failure, unspecified
CPT/HCPCS: A9270; G0463

== ENCOUNTER 2021-11-12 08:10 | Day surgery (SDC) | payer MEDICARE, OTHER | END 2021-11-12 22:47 | disposition home or self-care (01) | LOC: WOUND 08:10 | DX: L89.623 Pressure ulcer of left heel, stage 3 (principal); E11.621 Type 2 diabetes mellitus with foot ulcer; E11.51 Type 2 diabetes mellitus with diabetic peripheral angiopathy without gangrene; I48.91 Unspecified atrial fibrillation; I25.10 Atherosclerotic heart disease of native coronary artery without angina pectoris; I50.9 Heart failure, unspecified | CPT/HCPCS: A9270 ==

== ENCOUNTER 2021-11-19 01:03 | Day surgery (SDC) | payer MEDICARE, OTHER | END 2021-11-19 22:54 | disposition home or self-care (01) | LOC: WOUND | DX: L89.623 Pressure ulcer of left heel, stage 3 (principal); E11.621 Type 2 diabetes mellitus with foot ulcer; E11.51 Type 2 diabetes mellitus with diabetic peripheral angiopathy without gangrene; I48.91 Unspecified atrial fibrillation; I25.10 Atherosclerotic heart disease of native coronary artery without angina pectoris; I50.9 Heart failure, unspecified | CPT/HCPCS: A9270; G0463 ==

== ENCOUNTER 2021-11-26 02:31 | Day surgery (SDC) | payer MEDICARE, OTHER | END 2021-11-26 23:38 | disposition home or self-care (01) | LOC: WOUND 02:31 | DX: L89.623 Pressure ulcer of left heel, stage 3 (principal); E11.621 Type 2 diabetes mellitus with foot ulcer; E11.51 Type 2 diabetes mellitus with diabetic peripheral angiopathy without gangrene; I25.10 Atherosclerotic heart disease of native coronary artery without angina pectoris; I50.9 Heart failure, unspecified; I48.91 Unspecified atrial fibrillation | CPT/HCPCS: A9270; G0463 ==

== ENCOUNTER 2021-12-03 01:26 | Day surgery (SDC) | payer MEDICARE, OTHER | END 2021-12-08 23:31 | disposition home or self-care (01) | LOC: WOUND 01:26 | DX: L89.623 Pressure ulcer of left heel, stage 3 (principal); E11.621 Type 2 diabetes mellitus with foot ulcer; E11.51 Type 2 diabetes mellitus with diabetic peripheral angiopathy without gangrene; I48.91 Unspecified atrial fibrillation; I25.10 Atherosclerotic heart disease of native coronary artery without angina pectoris; I50.9 Heart failure, unspecified | CPT/HCPCS: A9270; G0463 ==

== ENCOUNTER 2021-12-19 01:48 | Day surgery (SDC) | payer MEDICARE, OTHER | END 2021-12-19 22:46 | disposition home or self-care (01) | LOC: WOUND 01:48 | DX: E11.621 Type 2 diabetes mellitus with foot ulcer (principal); L97.522 Non-pressure chronic ulcer of other part of left foot with fat layer exposed; T81.30XA Disruption of wound, unspecified, initial encounter; E11.51 Type 2 diabetes mellitus with diabetic peripheral angiopathy without gangrene | CPT/HCPCS: A9270; G0463 ==

== ENCOUNTER → 2022-01-13 | Emergency (ER) | payer MEDICARE, OTHER ==
[~2022-01-13] VITALS: Ht 152.4 cm; Wt 61.2 kg
[~2022-01-13] MED LIST changes: +ACET500 PO; +FURO40 PO; +TRAM50 PO; +Toprol Xl25 MG PO
== END ==
LOC: ER 13:47
DX: E11.69 Type 2 diabetes mellitus with other specified complication (principal); M86.9 Osteomyelitis, unspecified; I50.9 Heart failure, unspecified; I25.10 Atherosclerotic heart disease of native coronary artery without angina pectoris; E66.01 Morbid (severe) obesity due to excess calories; Z79.899 Other long term (current) drug therapy; Z68.26 Body mass index [BMI] 26.0-26.9, adult
CPT/HCPCS: 73630; J0696; J2543; J3370; J7050

== ENCOUNTER 2022-01-14 10:27 | Day surgery (SDC) | payer MEDICARE, OTHER ==
[~2022-01-14 10:27] MED LIST changes: -ACET500 PO; -FURO40 PO; -TRAM50 PO; -Toprol Xl25 MG PO
[2022-01-14] MEDS ORDERED: Toprol Xl25 MG PO (11:50)
[2022-01-14] MEDS ORDERED: FURO40 PO (11:50)
[2022-01-14] MEDS ORDERED: ACET500 PO (16:15)
[2022-01-14] MEDS ORDERED: TRAM50 PO (16:15)
== END 2022-01-14 15:50 | disposition home or self-care (01) ==
LOC: ATC 10:27
DX: E11.69 Type 2 diabetes mellitus with other specified complication (principal); M86.9 Osteomyelitis, unspecified; M06.9 Rheumatoid arthritis, unspecified; I50.9 Heart failure, unspecified; E66.01 Morbid (severe) obesity due to excess calories; I25.10 Atherosclerotic heart disease of native coronary artery without angina pectoris; Z79.01 Long term (current) use of anticoagulants
CPT/HCPCS: 96374; J0696

== ENCOUNTER → 2022-01-14 | Day surgery (SDC) | payer MEDICARE, OTHER | LOC: WOUND 02:37 | DX: L89.623 Pressure ulcer of left heel, stage 3 (principal); E11.621 Type 2 diabetes mellitus with foot ulcer; E11.51 Type 2 diabetes mellitus with diabetic peripheral angiopathy without gangrene; L97.222 Non-pressure chronic ulcer of left calf with fat layer exposed; L03.115 Cellulitis of right lower limb; I25.10 Atherosclerotic heart disease of native coronary artery without angina pectoris; I50.9 Heart failure, unspecified; L97.522 Non-pressure chronic ulcer of other part of left foot with fat layer exposed | CPT/HCPCS: A9270; G0463 ==

== ENCOUNTER 2022-01-15 01:23 | Day surgery (SDC) | payer MEDICARE, OTHER ==
[~2022-01-15 01:23] MED LIST changes: +ACET500 PO; +FURO40 PO; +TRAM50 PO; +Toprol Xl25 MG PO
== END 2022-01-15 16:17 | disposition home or self-care (01) ==
LOC: ATC 01:23
DX: M86.9 Osteomyelitis, unspecified (principal); I50.9 Heart failure, unspecified; I48.91 Unspecified atrial fibrillation; E66.01 Morbid (severe) obesity due to excess calories; E11.9 Type 2 diabetes mellitus without complications; I25.10 Atherosclerotic heart disease of native coronary artery without angina pectoris; Z79.01 Long term (current) use of anticoagulants; Z68.26 Body mass index [BMI] 26.0-26.9, adult
CPT/HCPCS: 96374; J0696

== ENCOUNTER 2022-01-16 00:32 | Day surgery (SDC) | payer MEDICARE, OTHER | END 2022-01-16 16:10 | disposition home or self-care (01) | LOC: ATC 00:32 | DX: E11.69 Type 2 diabetes mellitus with other specified complication (principal); M86.9 Osteomyelitis, unspecified; I50.9 Heart failure, unspecified; I48.91 Unspecified atrial fibrillation; Z79.01 Long term (current) use of anticoagulants; I25.10 Atherosclerotic heart disease of native coronary artery without angina pectoris; Z86.718 Personal history of other venous thrombosis and embolism | CPT/HCPCS: 96374; J0696 ==

== ENCOUNTER 2022-01-17 15:00 | Day surgery (SDC) | payer MEDICARE, OTHER | END 2022-01-17 15:19 | disposition home or self-care (01) | LOC: ATC 15:00 | DX: M86.9 Osteomyelitis, unspecified (principal) | CPT/HCPCS: 96374; J0696 ==

== ENCOUNTER 2022-01-18 15:44 | Day surgery (SDC) | payer MEDICARE, OTHER | END 2022-01-18 16:00 | disposition home or self-care (01) | LOC: ATC 15:44 | DX: M86.9 Osteomyelitis, unspecified (principal) | CPT/HCPCS: 96374; J0696 ==

== ENCOUNTER 2022-01-19 06:00 | Day surgery (SDC) | payer MEDICARE, OTHER | END 2022-01-19 16:10 | disposition home or self-care (01) | LOC: ATC 06:00 | DX: M86.9 Osteomyelitis, unspecified (principal) | CPT/HCPCS: 96374; J0696 ==

== ENCOUNTER 2022-01-20 02:40 | Day surgery (SDC) | payer MEDICARE, OTHER | END 2022-01-20 16:15 | disposition home or self-care (01) | LOC: ATC 02:40 | DX: M86.9 Osteomyelitis, unspecified (principal) | CPT/HCPCS: 96374; J0696 ==

== ENCOUNTER 2022-01-21 01:22 | Day surgery (SDC) | payer MEDICARE, OTHER | END 2022-01-21 23:30 | disposition home or self-care (01) | LOC: WOUND 01:22 | DX: E11.621 Type 2 diabetes mellitus with foot ulcer (principal); L97.525 Non-pressure chronic ulcer of other part of left foot with muscle involvement without evidence of necrosis; E11.51 Type 2 diabetes mellitus with diabetic peripheral angiopathy without gangrene; L89.623 Pressure ulcer of left heel, stage 3; L03.115 Cellulitis of right lower limb; I25.10 Atherosclerotic heart disease of native coronary artery without angina pectoris; I50.9 Heart failure, unspecified; I48.91 Unspecified atrial fibrillation | CPT/HCPCS: A9270 ==

== ENCOUNTER 2022-01-27 01:12 | Day surgery (SDC) | payer MEDICARE, OTHER | END 2022-01-27 23:50 | disposition home or self-care (01) | LOC: WOUND 01:12 | DX: L89.624 Pressure ulcer of left heel, stage 4 (principal); E11.621 Type 2 diabetes mellitus with foot ulcer; E11.51 Type 2 diabetes mellitus with diabetic peripheral angiopathy without gangrene; E11.69 Type 2 diabetes mellitus with other specified complication; L97.222 Non-pressure chronic ulcer of left calf with fat layer exposed; L03.116 Cellulitis of left lower limb; M86.672 Other chronic osteomyelitis, left ankle and foot | CPT/HCPCS: A9270; G0463 ==

== ENCOUNTER 2022-02-11 01:21 | Day surgery (SDC) | payer MEDICARE, OTHER | END 2022-02-11 23:37 | disposition home or self-care (01) | LOC: WOUND 01:21 | DX: L89.624 Pressure ulcer of left heel, stage 4 (principal); L97.222 Non-pressure chronic ulcer of left calf with fat layer exposed; E11.621 Type 2 diabetes mellitus with foot ulcer; L03.116 Cellulitis of left lower limb; M86.672 Other chronic osteomyelitis, left ankle and foot; E11.51 Type 2 diabetes mellitus with diabetic peripheral angiopathy without gangrene | CPT/HCPCS: A9270; G0463 ==

== ENCOUNTER 2022-03-04 06:36 | Day surgery (SDC) | payer MEDICARE, OTHER | END 2022-03-04 23:26 | disposition home or self-care (01) | LOC: WOUND 06:36 | DX: L89.624 Pressure ulcer of left heel, stage 4 (principal); E11.621 Type 2 diabetes mellitus with foot ulcer; L97.222 Non-pressure chronic ulcer of left calf with fat layer exposed; E11.51 Type 2 diabetes mellitus with diabetic peripheral angiopathy without gangrene; L03.116 Cellulitis of left lower limb; M86.172 Other acute osteomyelitis, left ankle and foot | CPT/HCPCS: A9270; G0463 ==

== ENCOUNTER 2022-04-15 02:42 | Day surgery (SDC) | payer MEDICARE, OTHER | END 2022-04-15 22:43 | disposition home or self-care (01) | LOC: WOUND 02:42 | DX: E11.51 Type 2 diabetes mellitus with diabetic peripheral angiopathy without gangrene (principal); I48.91 Unspecified atrial fibrillation; I25.10 Atherosclerotic heart disease of native coronary artery without angina pectoris; I50.9 Heart failure, unspecified; Z87.2 Personal history of diseases of the skin and subcutaneous tissue; Z86.31 Personal history of diabetic foot ulcer; Z87.39 Personal history of other diseases of the musculoskeletal system and connective tissue | CPT/HCPCS: G0463 ==

== ENCOUNTER 2022-05-11 01:48 | Day surgery (SDC) | payer MEDICARE, OTHER | END 2022-05-11 23:02 | disposition home or self-care (01) | LOC: WOUND 01:48 | DX: L89.623 Pressure ulcer of left heel, stage 3 (principal); E11.621 Type 2 diabetes mellitus with foot ulcer; E11.51 Type 2 diabetes mellitus with diabetic peripheral angiopathy without gangrene; L97.222 Non-pressure chronic ulcer of left calf with fat layer exposed; L03.116 Cellulitis of left lower limb; M86.172 Other acute osteomyelitis, left ankle and foot | CPT/HCPCS: G0463 ==